=== PATIENT | male | born 1940 | race Caucasian/White ===

== ENCOUNTER 2016-07-13 06:02 | Day surgery (SDC) | payer MEDICARE ==
[~2016-07-13] VITALS: Ht 175.3 cm; Wt 76.4 kg
[~2016-07-13 06:02] MED LIST: SIMV20TA PO; TAMS0.4C4 PO
[2016-07-13 06:39] VITALS: BP 145/76; PULSE 61; RESP 20; TEMP 97.9; O2SAT 98
[2016-07-13] MEDS ORDERED: ATOR20TA15 PO (06:39)
[2016-07-13] MEDS ORDERED: ASPI1TAB69 PO (06:40)
[2016-07-13 06:59] LABS: AUTOMATED NEUTROPHIL # 4.1 TH/MM3 (1.8-7.7); BASOPHIL % 0.6 % (0.0-2.0); EOSINOPHIL # 0.1 TH/MM3 (0-0.4); HEMATOCRIT 44.4 % (39.0-51.0); HEMO FLAGS DIFF FINAL; LYMPH % 26.4 % (9.0-44.0); LYMPHOCYTE # 1.8 TH/MM3 (1.0-4.8); MEAN CELL VOLUME 97.8 FL (80.0-100.0); MEAN CORPUSCULAR HEMOGLOBIN 32.9 PG (27.0-34.0); MEAN CORPUSCULAR HGB CONC 33.6 % (32.0-36.0); MONO % 9.2 % (0.0-8.0); NEUT % 61.8 % (16.0-70.0); PLATELET COUNT 176 TH/MM3 (150-450); RED BLOOD COUNT 4.54 MIL/MM3 (4.50-5.90); RED CELL DISTRIBUTION WIDTH 13.2 % (11.6-17.2); WHITE BLOOD COUNT 6.7 TH/MM3 (4.0-11.0)
[2016-07-13 07:08] LABS: APTT (PATIENT) 26.7 SEC (24.3-30.1); PROTHROMBIN TIME - PATIENT 10.5 SEC (9.8-11.6)
[2016-07-13] MEDS ORDERED: ceFAZolin 2 GM PREMIX 50 ML ONE (07:52)
[2016-07-13] MEDS ORDERED: fentaNYL CITRATE 250 MCG/5 ML AMP ONE (07:53)
[2016-07-13] MEDS ORDERED: MIDAZOLAM HCL 5 MG/5 ML VIAL ONE (07:53)
[2016-07-13] MEDS ORDERED: LIDOCAINE 1%/EPINEPHrine 1:100,000 SOLN 20 ML VIAL ONE (08:06)
[2016-07-13] MEDS ORDERED: ceFAZolin 2 GM PREMIX 50 ML - implanted port removal IV SCH (08:15)
[2016-07-13] MEDS ORDERED: SODIUM CHLORIDE 0.9% 1000 ML IV SCH (08:15)
[2016-07-13 08:45] VITALS: BP 142/69; PULSE 56; RESP 18; TEMP 97.6; O2SAT 98
--- NOTE | 2016-07-13 08:47 | PD.RAD ---
Post Procedure Progress Note Pre Procedure Diagnosis: (1) Bladder cancer Post Procedure Diagnosis: (1) Bladder cancer Procedure Date: Jul 13, 2016 Supervising Radiologist: Manuel Mills Proceduralist/Assist: Efrem Gonsalves RT(R), RT Montrell(R)() Anesthesia: Local, Conscious Sedation Plan of Activity Patient to Unit: ROPU Patient Condition: Good See PACS Report for procedural detail/treatment Central Venous Access Device Procedure 1 Right Internal Jugular Infusaport Removal single lumen Manuel Mills MD Jul 13, 2016 08:47
[2016-07-13 09:00] VITALS: BP 161/87; PULSE 63; RESP 19; O2SAT 94
--- NOTE | 2016-07-13 09:13 | RADRPT ---
EXAM DATE/TIME: 07/13/2016 07:23 [facility] COMPARISON: No previous studies available for comparison. INDICATIONS : Patient presents with a history of bladder cancer and is in need of port removal that is no longer ne eded. MEDICAL HISTORY : Hx of bladder cancer Pre diabetes SURGICAL HISTORY : N/A ENCOUNTER: Subsequent ACUITY: > 1 year PAIN SCORE: 0/10 LOCATION: N/A SEDATION TIME: 15 minutes 1.) 2 mg midazolam (Versed) IV 2.) 100 mcg fentanyl (Sublimaze) IV 3.) 2 g Ancef IV Prophylactic antibiotics were administered with appropriate pre-procedure timing. Vancomycin within 2 hrs of procedure, Ancef (or alternative) within 1 hr of procedure. PROCEDURE : 1. Removal of Veaynh-e-dwsm. 2. Conscious sedation with continuous EKG and oximetry monitoring. The risk, benefits and potential complications of Jaswzo-u-Aibc removal were discussed. Written conse nt was obtained. The patient was placed supine. The chest wall was prepped in sterile fashion. Full sterile techniqu e was used, including cap, mask, sterile gloves and gown, and a large sterile sheet. Hand hygiene an d 2% chlorhexidine and/or Betadine/alcohol prep was utilized per protocol for cutaneous antisepsis. The skin and subcutaneous tissues were infiltrated with local anesthetic solution. A small incision w as made, the subcutaneous pocket was opened. The port was dissected from the subcutaneous tissues and easily removed in one piece. The pocket incision was closed with subcuticular Vicryl suture. Steri -Strips were applied. Conscious sedation was performed with the prescribed dosages and duration as above in the presence of an independent trained radiology nurse to assist in the monitoring of the patient. EKG and oximetry remained stable throughout the procedure. The patient tolerated the procedure well and there were no complications. The patient was sent to post anesthesia recovery in stable condition. CONCLUSION: Uncomplicated port removal as above. Manuel Mills MD on July 13, 2016 at 9:11 Board Certified Radiologist. This report was verified electronically.
[2016-07-13 09:30] VITALS: BP 135/60; PULSE 53; RESP 18; O2SAT 96
[2016-07-13 10:00] VITALS: BP 137/73; PULSE 55; RESP 17; O2SAT 97
== END 2016-07-13 11:00 | disposition home or self-care (01) ==
LOC: HROP 06:02 → HRIP 06:06 → HROP 11:00
PROVIDERS: ATTEND Internal Medicine Hematology
DX: Z45.2 Encounter for adjustment and management of vascular access device (principal); C67.9 Malignant neoplasm of bladder, unspecified; R73.03 Prediabetes
CPT/HCPCS: 36590; 85025; 85610; 85730; 99152; J2250; J3010; J7030; J0690